=== PATIENT | female | born 1975 | race African-American/Black ===

== ENCOUNTER 2019-08-08 12:42 | Emergency (ER) | payer OTHER ==
[~2019-08-08] VITALS: Ht 162.6 cm; Wt 71.7 kg
[2019-08-08 13:16] LABS: Basophils # (auto) 0 uL; Basophils % (auto) 1.5 % (0.0-2.0); Eosinophils # (auto) 0 uL; Eosinophils % (auto) 1.2 % (0.0-7.0); Hematocrit 31.2 % (36.0-46.0); Hemoglobin 10.5 g/dL (12.2-16.2); Lymphocytes % (auto) 31.8 % (10.0-50.0); Mean Corpuscular Hemoglobin 28.8 pg (28.0-32.0); Mean Corpuscular Hgb Conc. 33.8 g/dL (32.0-36.0); Monocytes # (auto) 0.3 uL; Monocytes % (auto) 9.9 % (0.0-12.0); Neutrophils # (auto) 1.7 uL; Neutrophils % (auto) 55.6 % (37.0-80.0); Nucleated Red Blood Cells % 0.1 %; Platelet Count (auto) 324 10^3/uL (140-450); Red Blood Cells 3.67 10^6/uL (4.0-5.20); Red Cell Distribution Width 14.8 % (11.8-14.3); White Blood Cell 3.1 10^3/uL (4.4-10.8)
[2019-08-08 13:30] LABS: Urine Bacteria NONE SEEN /hpf (None Seen); Urine Blood 2+ /uL (Negative); Urine Mucus FEW (None Seen); Urine Specific Gravity 1.018 (1.001-1.035); Urine WBC 3 /hpf (0 - 5)
[2019-08-08 13:34] LABS: Albumin 3.7 g/dL (3.4-5.0); Calcium 8.1 mg/dL (8.5-10.1); Potassium 3.5 mmol/L (3.5-5.1)
[2019-08-08 13:40] LABS: BUN/Creatinine Ratio 13.3; Bilirubin, Total 0.2 mg/dL (0.2-1.0); Total Protein 7.3 g/dL (6.4-8.2)
[2019-08-08] MEDS ORDERED: SODIUM CHLORIDE 0.9% 1,000 ML IVB ONE (13:56)
[2019-08-08 16:08] VITALS: BP 98/74
== END 2019-08-08 18:11 | disposition home or self-care (01) ==
LOC: ER 12:49
DX: D25.9 Leiomyoma of uterus, unspecified (principal); N39.0 Urinary tract infection, site not specified; D50.9 Iron deficiency anemia, unspecified; N93.9 Abnormal uterine and vaginal bleeding, unspecified
CPT/HCPCS: 36415; 76856; 80053; 81001; 84702; 85025